=== PATIENT | male | born 1940 | race Caucasian/White ===

== ENCOUNTER 2019-01-04 14:19 | Emergency (ER) | payer OTHER ==
[~2019-01-04] VITALS: Ht 185.4 cm; Wt 80.3 kg
--- OUTSIDE RECORDS SUMMARY | 2019-01-04 14:22 | XMS REPORT | Continuity of Care Document ---
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 Monoclonal gammopathies Resolved 11/25/2011 Problem 08/26/2018 [facility] [place] A-fib Resolved 05/26/2010 Problem 08/26/2018 [facility] [place] Hypertriglyceridemia Resolved 05/26/2009 Problem 08/26/2018 [facility] [place] NIDDM Resolved 05/26/2009 Problem 08/26/2018 [facility] [place] COPD (Confirmed) Resolved 05/26/2008 Problem 08/26/2018 [facility] [place] GOUT Resolved 05/26/2007 Problem 08/26/2018 [facility] [place] GERD (Confirmed) Resolved 05/26/1999 Problem 08/26/2018 [facility] [place] HTN (Confirmed) Resolved 05/26/1974 Problem 08/26/2018 [facility] [place] ASBESTOSIS Resolved Problem 08/26/2018 [facility] [place] Basal cell carcinoma of nose Resolved Problem 08/26/2018 [facility] [place] Cerebral vascular accident Resolved Problem 08/26/2018 [facility] [place] (Confirmed) Resolved Problem 08/26/2018 [facility] [place] Urinary Frequency Resolved Problem 08/26/2018 [facility] [place] MONOCLONAL GAMMOPATHY Active [facility] Medications Medication Details Route Status Patient Instructions Ordering Provider Order Date Source levalbuterol 1.25 mg/3 mL inhalation solution 1.25 mg=3 mL, NEB, TID, # 270 ea, 0 Refill(s) Active 10/30/2016 [facility] Ibuprofen 100 MG Oral Tablet 200 mg=2 tab, PO, Q6H, PRN Pain, # 80 tab, 0 Refill(s) Active 10/30/2016 [facility] tamsulosin 0.4 mg oral capsule 0.4 mg=1 cap, PO, Daily, # 30 cap, 0 Refill(s) Active 10/30/2016 [facility] Klor-Con 10 10 mEq, PO, BID, 0 Refill(s) Active 10/30/2016 [facility] Furosemide 40 MG Oral Tablet 40 mg=1 tab, PO, Daily, # 30 tab, 0 Refill(s) Active 10/30/2016 [facility] Mirtazapine 30 MG Oral Tablet [Remeron] 30 mg=1 tab, PO, Bedtime, # 30 tab, 0 Refill(s) Active 10/30/2016 [facility] Nexium PO, Daily, 0 Refill(s) Active 10/30/2016 [facility] Allergies, Adverse Reactions, Alerts No Known Medication Allergies Immunizations No Data Provided for This Section Results Order Name Results Value Reference Range Date Interpretation Comments Source HEMATOLOGY Retic Auto 1.3 0.5 - 1.5 10/30/2016 [facility] Segs-Bands # 3.5 1.5 - 8.1 10/30/2016 [facility] HEMATOLOGY Eosinophils 5.0 0.0 - 4.0 10/30/2016 [facility] HEMATOLOGY Eosinophils # 0.3 0.0 - 0.5 10/30/2016 [facility] HEMATOLOGY Monocytes # 0.6 0.0 - 0.8 10/30/2016 [facility] Lymphocytes # 2.0 1.0 - 5.5 10/30/2016 [facility] Monocytes 10.0 2.0 - 12.0 10/30/2016 [facility] Lymphocytes 25.0 20.0 - 40.0 10/30/2016 [facility] HEMATOLOGY Bands 1.0 0.0 - 11.0 10/30/2016 [facility] HEMATOLOGY Segs 53.0 45.0 - 75.0 10/30/2016 [facility] Basophils # 0.1 0.0 - 0.2 10/30/2016 [facility] Atypical Lymphs 5.0 <=0.0 % 10/30/2016 [facility] Basophils 1.0 0.0 - 1.0 10/30/2016 [facility] Plt Morph Normal (10/30/16 10:00 AM) 10/30/2016 [facility] RBC Morph Normal (10/30/16 10:00 AM) 10/30/2016 [facility] MCH 31.9 27.0 - 31.0 10/30/2016 [facility] MCHC 33.8 32.0 - 36.0 10/30/2016 [facility] Platelet 157 133 - 450 10/30/2016 [facility] Hct 38.4 42.0 - 54.0 10/30/2016 [facility] RDW 13.4 11.5 - 14.5 10/30/2016 [facility] MCV 94.4 80.0 - 94.0 10/30/2016 [facility] MPV 9.2 7.4 - 10.4 10/30/2016 [facility] WBC 6.5 3.7 - 10.4 10/30/2016 [facility] RBC 4.06 4.70 - 6.10 10/30/2016 [facility] Hgb 13.0 14.0 - 18.0 10/30/2016 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 TECHNIQUE: Continuous 1.[address] images were obtained through the chest following the intravenous administration of contrast with coronal, sagittal, axial MIP and candycane reformatted images created at the workstation. IV contrast dose: 100 mL Omnipaque 300 contrast Total exam DLP: 466.09 mGy-- cm No prior chest CT is available for comparison. FINDINGS: The aortic root measures 36 mm. The ascending aorta is dilated measuring up to 41 mm. The aortic arch is 27 mm. The upper aspect of the descending thoracic aorta 27 mm, the mid descending thoracic aorta 27 mm and distally 26 mm. At the level of the diaphragmatic hiatus, the aorta measures 23 mm. Incompletely included on this study is tortuosity and ectasia of the infrarenal abdominal aorta measuring 30 mm on axial image 294. There is aortic atherosclerosis with calcifications. Aortic root/valve calcifications. No aortic dissection. Cardiothoracic ratio measures 15.3/29.5 cm. Calcifications identified in the left anterior descending and right coronary arteries. The pulmonary trunk is normal in caliber. Tiny pericardial effusion. There are no pleural effusions. Limited imaging through the upper abdomen shows mesenteric edema and perinephric stranding. Adrenal glands are unremarkable. There may be a small gastric diverticulum posteriorly. Calcified mediastinal and left hilar lymph nodes are the result of granulomatous disease. Centrilobular and paraseptal emphysema with an upper lobe predilection. Dependent atelectasis in the bilateral lower lobes and subsegmental atelectasis in the lingula. There is dextroscoliosis of the thoracic spine with degenerative changes including disc space narrowing, subchondral sclerosis and osteophytes. C-spine anterior fusion hardware. Old healed right-sided rib fractures. IMPRESSION: 1. 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 Aortic atherosclerosis and aortic valve calcifications. 2. Incompletely included on this study is tortuosity and ectasia of the infrarenal abdominal aorta. The abdominal aorta can be better evaluated with abdominal CTA as clinically indicated. 3. Borderline cardiomegaly. Coronary artery calcifications. Tiny pericardial effusion. 4. Centrilobular and paraseptal emphysema with an upper lobe predilection. 5. Bilateral lower lobe and lingular subsegmental atelectasis. 08/24/2018 [facility] Bone Marrow Biopsy or Trocar (VR) Patient Name: PARAMJIT CRESPO : 1940; Age: 76 years y/o Male MR: [id number] Study: Bone Marrow Biopsy or Trocar (VR) 10/30/2016 8:58 AM CDT Ordering Physician: Maddison Tim MD Clinical Indication: - monoclonal gammophaty; Comparison: None Timeout performed prior procedure Total fluoroscopy time 0.1 minutes. Radiation dose 9 mGy. Fluoroscopic guidance for bone marrow biopsy. Hard copy fluoroscopic image recorded. 11-gauge needle was advanced into the left posterior iliac crest marrow space. 6 mL of marrow were aspirated. 11-gauge core bone biopsy performed at the left iliac bone. Intravenous conscious sedation. Patient received 2 mg Versed and 50 mcg fentanyl. Total physician-patient rugo-mg-jzex sedation monitoring 10 minutes. Procedure well-tolerated 4. SL: [id number] 10/30/2016 [facility] Consultation Notes No Data Provided for This Section Discharge Summaries No Data Provided for This Section History and Physicals No Data Provided for This Section Vital Signs Vital Sign Value Date Comments Source Height 187.96 cm 10/30/2016 [facility] BMI Calculated 28.31 10/30/2016 [facility] Weight 100 10/30/2016 [facility] Encounters Location Location Details Encounter Type Encounter Number Reason For Visit Attending Provider ADM Date DC Date Status Source [facility] Outpatient [id number] Maddison Jacoboneel 10/30/2016 10/31/2016 [facility] [place] [facility] [id number] Scottkate Buckley 08/24/2018 08/25/2018 [facility] Procedures Procedure Code Date Perfomer Comments Source Cataract surgery [id number] 05/26/2008 [facility] Fusion of cervicothoracic region of spine by posterior approach [id number] 05/26/2008 [facility] Cataract surgery [id number] 05/26/2008 [facility] Fusion of cervicothoracic region of spine by posterior approach [id number] 05/26/2008 [facility] Pneumothorax relief<sup>1</sup> [id number] 05/19/2007 chest tube placement r/t fall and fracture of two ribs [facility] Pneumothorax relief<sup>1</sup> [id number] 05/19/2007 chest tube placement r/t fall and fracture of two ribs [facility] Knee arthrogram<sup>2</sup> [id number] 05/26/1961 left knee meniscus removed [facility] Knee arthrogram<sup>2</sup> [id number] 05/26/1961 left knee meniscus removed [facility] Appendectomy [id number] 05/26/1949 [facility] Hernia repair<sup>3</sup> [id number] 05/26/1949 umbillical [facility] Tonsillectomy [id number] 05/26/1949 [facility] Appendectomy [id number] 05/26/1949 [facility] Hernia repair<sup>3</sup> [id number] 05/26/1949 umbillical [facility] Tonsillectomy [id number] 05/26/1949 [facility] Assessment and Plan No Data Provided for This Section Plan of Care No Data Provided for This Section Social History Social History Date Source Social History TypeResponse Smoking Status Former smoker; Type: Cigarettes; Exposure to Tobacco Smoke None; Cigarette Smoking Last 365 Days No; Reg Smoking Cessation Counseling No; Started [age] age: 14.0; Stopped at age: 62; entered on: 10/30/16 10/30/2016 [facility] Social History TypeResponse Smoking Status Former smoker; Type: Cigarettes; Started at age: 14.0; Stopped at age: 62; Exposure to Tobacco Smoke None; Cigarette Smoking Last 365 Days No; Reg Smoking Cessation Counseling No 10/30/2016 [facility] Family History No Data Provided for This Section Advance Directives No Data Provided for This Section Functional Status No Data Provided for This Section
--- OUTSIDE RECORDS SUMMARY | 2019-01-04 14:22 | XMS REPORT | Summary of Care ---
Author Author Kristy Olmstead Organization Unknown Address [facility] Phone Unavailable Care Team Providers Care Electronics Inspector Name Role Phone DAJUAN OLIVO M.D. 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, D47.2) Status: Active BPH (benign prostatic hyperplasia) (600.00, N40.0) Status: Active Spinal stenosis of lumbar region at multiple levels (724.02, M48.061) Status: Active Diabetes mellitus type 2, controlled (250.00, E11.9) Status: Active 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 Quantity: 90 DAJUAN OLIVO M.D. Active Fenofibrate Micronized 134 MG Oral Capsule TAKE 1 CAPSULE DAILY * Quantity: 90 Refills: 1 DAJUAN OLIVO M.D. Active Metoprolol Tartrate 50 MG Oral Tablet TAKE 1 TABLET EVERY 12 HOURS DAILY. * Quantity: 180 Refills: 1 DAJUAN OLIVO M.D. Active Warfarin Sodium 5 MG Oral Tablet TAKE 1/2 TABLET FRIDAY-FRIDAY, TAKE 1 TABLET ON FRIDAY * Quantity: 30 Refills: Juan C GEOVANI AndrewsDAJUAN Active Tamsulosin HCl - 0.4 MG Oral Capsule TAKE 1 CAPSULE DAILY * Quantity: 90 Refills: Juan C ALEXANDER OLIVO M.D.OLD Active Xopenex HFA 45 MCG/ACT Inhalation Aerosol INHALE 1 TO 2 PUFFS EVERY 4 TO 6 HOURS NEEDED. * Quantity: 1 Refills: 3 DAJUAN OLIVO M.D. Active 15 GM Inhaler Furosemide 40 MG Oral Tablet TAKE 1 TABLET DAILY * Quantity: 30 Refills: 6 DAJUAN OLIVO M.D. Active Klor-Con 10 10 MEQ Oral Tablet Extended Release TAKE 1 TABLET DAILY. * Quantity: 30 Refills: 6 DAJUAN OLIVO M.D. Active NexIUM 24HR TBEC TAKE 1 CAPSULE DAILY * Refills: 0 Active Vitamin C 500 MG Oral Capsule TAKE 1 CAPSULE DAILY * Refills: 0 Active Vitamin B-12 1000 MCG Oral Tablet TAKE 2 TABLETS DAILY * Refills: 0 Active Levalbuterol HCl - 1.25 MG/3ML Inhalation Nebulization Solution USE 1 VIAL IN NEBULIZER EVERY 6 HOURS. * Quantity: 360 Refills: Stephane GEOVANI AndrewsDAJUAN * Start : 20-Aug-2017 Active Allergies and Adverse Reactions Name Dates Details Vicodin TABS (Adverse Event) Reaction: Vomiting Status: Active Past Medical History Name Dates Details History of Elevated glucose (790.29, R73.09) Status: Resolved History of gout (V12.29, Z87.39) Status: Resolved History of hyperlipidemia (V12.29, Z86.39) Status: Resolved History of hypertension (V12.59, Z86.79) Status: Resolved History of stroke (V12.54, Z86.73) Status: Resolved Procedures Procedure Dates Details History of knee surgery Completed History of cervical vertebral fusion Completed Comments: Completed: 2007 History of lumbar laminectomy Completed 11-Jun-2017 Immunization Name Dates Details Influenza, seasonal, injectable on: Mar-2017 Family History Name Dates Details Family history of Alzheimer's disease (V17.2, Z82.0) Status: Active Name Dates Details Family history of malignant neoplasm (V16.9, Z80.9) Status: Active Social History Name Dates Details - Status: Name Dates Details Former smoker Vital Signs Date Test Result Details [id number] Physical Findings 2013 Status: Comments: Colonoscopy Physical Findings 0 Status: Comments: PHQ-9 Adult Depression Screening :32 BP Systolic 115 mm[Hg] Status: Comments: Location: E; Position: Sitting BP Diastolic 74 mm[Hg] Status: Comments: Location: E; Position: Sitting Height 74 in Status: Weight 197.1875 lb Status: Body Mass Index Calculated 25.32 kg/m2 Status: Body Surface Area Calculated 2.16 m2 Status: Temperature 98.3 f Status: Comments: Method: Temporal Heart Rate 80 /min Status: Comments: Location: L Brachial Artery; Respiration Rate 16 /min Status: Results Date Description Value Details :29 [QLH] LIPID PANEL CHOLESTEROL, TOTAL 139 mg/dl (Normal) Range: <200 HDL CHOLESTEROL 47 mg/dl (Normal) Range: >40 TRIGLYCERIDES 78 mg/dl (Normal) Range: <150 LDL-CHOLESTEROL 76 {MG/DL__CAL} (Normal) Comments: Reference range: <100 Desirable range <100 mg/dL for patients with CHD ordiabetes and <70 mg/dL for diabetic patients withknown heart disease. LDL-C is now calculated using the Edita cabrera calculation, which is a validated novel method providing better accuracy than the Friedewald equation in the estimation of LDL-C. Eloy SS et al. URMILA. 2013;310(19): 6723-3399 (http://education.ScaleXtreme.DueProps/faq/FSM749) CHOL/HDLC RATIO 3.0 {CALC} (Normal) Range: <5.0 NON HDL CHOLESTEROL 92 {MG/DL__CAL} (Normal) Range: <130 Comments: For patients with diabetes plus 1 major ASCVD risk factor, treating to a non-HDL-C goal of <100 mg/dL (LDL-C of <70 mg/dL) is considered a therapeutic option. :29 [QLH] URIC ACID URIC ACID 3.9 mg/dl (Below low threshold) Range: 4.0-8.0 Comments: Therapeutic target for gout patients: <6.0 mg/dL :29 [QLH] CMP W/EGFR GLUCOSE 92 mg/dl (Normal) Range: 65-99 Comments: Fasting reference interval UREA NITROGEN (BUN) 16 mg/dl (Normal) Range: 7-25 CREATININE 1.36 mg/dl (Above high threshold) Range: 0.70-1.18 Comments: For patients >49 years of age, the reference limitfor Creatinine is approximately 13% higher for peopleidentified as -[place]. eGFR NON- 51 {ML/MIN/1.7} (Below low threshold) Range: > OR=60 eGFR 59 {ML/MIN/1.7} (Below low threshold) Range: > OR=60 BUN/CREATININE RATIO 12 {CALC} (Normal) Range: 6-22 SODIUM 142 mmol/L (Normal) Range: 135-146 POTASSIUM 4.2 mmol/L (Normal) Range: 3.5-5.3 CHLORIDE 105 mmol/L (Normal) Range: 98-110 CARBON DIOXIDE 30 mmol/L (Normal) Range: 20-31 CALCIUM 9.4 mg/dl (Normal) Range: 8.6-10.3 PROTEIN, TOTAL 6.4 g/dl (Normal) Range: 6.1-8.1 ALBUMIN 4.0 g/dl (Normal) Range: 3.6-5.1 GLOBULIN 2.4 {G/DL__CALC} (Normal) Range: 1.9-3.7 ALBUMIN/GLOBULIN RATIO 1.7 {CALC} (Normal) Range: 1.0-2.5 BILIRUBIN, TOTAL 0.6 mg/dl (Normal) Range: 0.2-1.2 ALKALINE PHSPHATASE 31 u/l (Below low threshold) Range: 40-115 AST 15 u/l (Normal) Range: 10-35 ALT 10 u/l (Normal) Range: 9-46 [id number] [[facility]] CBC (INCLUDES DIFF/PLT) WHITE BLOOD CELL COUNT 7.0 {Thousand/u} (Normal) Range: 3.8-10.8 RED BLOOD CELL COUNT 3.77 {Million/uL} (Below low threshold) Range: 4.20-5.80 HEMOGLOBIN 11.9 g/dl (Below low threshold) Range: 13.2-17.1 HEMATOCRIT 36.5 % (Below low threshold) Range: 38.5-50.0 MCV 96.8 fL (Normal) Range: 80.0-100.0 MCH 31.6 pg (Normal) Range: 27.0-33.0 MCHC 32.6 g/dl (Normal) Range: 32.0-36.0 RDW 12.8 % (Normal) Range: 11.0-15.0 PLATELET COUNT 193 {Thousand/u} (Normal) Range: 140-400 MPV 11.0 fL (Normal) Range: 7.5-12.5 ABSOLUTE NEUTROPHILS 4522 {cells/uL} (Normal) Range: 7258-4829 ABSOLUTE LYMPHOCYTES 1848 {cells/uL} (Normal) Range: 850-3900 ABSOLUTE MONOCYTES 469 {cells/uL} (Normal) Range: 200-950 ABSOLUTE EOSINOPHILS 133 {cells/uL} (Normal) Range: 15-500 ABSOLUTE BASOPHILS 28 {cells/uL} (Normal) Range: 0-200 NEUTROPHILS 64.6 % (Normal) LYMPHOCYTES 26.4 % (Normal) MONOCYTES 6.7 % (Normal) EOSINOPHILS 1.9 % (Normal) BASOPHILS 0.4 % (Normal) :29 [[facility]] TSH, 3RD GENERATION TSH 0.86 {MIU/L} (Normal) Range: 0.40-4.50 :29 [[facility]] HEMOGLOBIN A1c Comments: REPORT COMMENT:FASTING:YES HEMOGLOBIN A1c 5.1 {%_of_total} (Normal) Range: <5.7 Comments: For the purpose of screening for the presence ofdiabetes: <5.7% Consistent with the absence of diabetes5.7-6.4% Consistent with increased risk for diabetes (prediabetes)> or=6.5% Consistent with diabetes This assay result is consistent with a decreased riskof diabetes. Currently, no consensus exists regarding use ofhemoglobin A1c for diagnosis of diabetes in children. According to [place] Diabetes Association (ADA)guidelines, hemoglobin A1c <7.0% represents optimalcontrol in non- diabetic patients. Differentmetrics may apply to specific patient populations. Standards of Medical Care in Diabetes(ADA). [id number] [O] PT/INR (in office) International Normalization Ratio 2.8 PT 34 . 18Q Plan of Care Name Dates Details Planned Observations Planned Goals not documented Planned Encounters Appointment; GERHARD MENDOZA M.D. On: 16-Sep-2017 13:20 Appointment; DAJUAN OLIVO M.D. On: 30-Sep-2017 11:30 Instructions Name Dates Details Instructions not documented Encounters Appointment; DAJUAN OLIVO M.D. Encounter Diagnosis: Problem not documented On: 27-May-2017 10:00 Appointment; DAJUAN OLIVO M.D. Encounter Diagnosis: Problem not documented On: 26-Jun-2017 10:30 Appointment; DAJUAN OLIVO M.D. Encounter Diagnosis: Problem not documented On: 24-Jul-2017 14:00 Appointment; DAJUAN OLIVO M.D. Encounter Diagnosis: Problem not documented On: 26-Aug-2017 11:30
--- OUTSIDE RECORDS SUMMARY | 2019-01-04 14:22 | XMS REPORT | Summary of Care ---
Author Author [facility] Outpatient Imaging [facility] Outpatient Imaging [facility] Address Unknown Phone Unavailable Encounter GENNY Lee(RONALDO) [id number] Date(s): 08/24/18 - 08/24/18 [facility] Outpatient Imaging [facility] [address], [address] [place] [phone] Discharge Disposition: Home or Self Care Attending Physician: Scott Buckley MD Referring Physician: Scott Buckley MD Vital Signs No data available for this section Problem List Condition Effective Dates Status Health Status Informant A-fib(Confirmed) 05/26/10 Resolved ASBESTOSIS(Confirmed Resolved ) Basal cell carcinoma Resolved of nose(Confirmed) COPD (chronic 05/26/08 Resolved obstructive pulmonary disease)(Confirmed) Cerebral vascular Resolved accident(Confirmed) GERD 05/26/99 Resolved (gastroesophageal reflux disease)(Confirmed) GOUT(Confirmed) 05/26/07 Resolved [place] (hard of Resolved hearing)(Confirmed) HTN 05/26/74 Resolved (hypertension)(Confi rmed) Hypertriglyceridemia 05/26/09 Resolved (Confirmed) 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) NIDDM(Confirmed) 05/26/09 Resolved Urinary Resolved Frequency(Confirmed) Allergies, Adverse Reactions, Alerts Substance Reaction Severity Status NKDA Active Medications No data available for this section Results No data available for this section Immunizations No data available for this section Procedures Procedure Date Related Diagnosis Body Site Status Cataract surgery 05/26/08 Completed Fusion of cervicothoracic region of spine by 05/26/08 Completed posterior approach Pneumothorax relief1 05/19/07 Completed Knee arthrogram2 05/26/61 Completed Appendectomy 05/26/49 Completed Hernia repair3 05/26/49 Completed Tonsillectomy 05/26/49 Completed 1chest tube placement r/t fall and fracture of two ribs 2left knee meniscus removed 3umbillical Social History Social History Type Response Smoking Status Former smoker; Type: Cigarettes; Exposure to Tobacco Smoke None; Cigarette Smoking Last 365 Days No; Reg Smoking Cessation Counseling No; Started at age: 14.0; Stopped at age: 62; entered on: 10/30/16 Assessment and Plan No data available for this section
--- OUTSIDE RECORDS SUMMARY | 2019-01-04 14:22 | XMS REPORT | Summary of Care ---
Author Author [facility] Organization [facility] Address Unknown Phone Unavailable Encounter GENNY Lee(RONALDO) [id number] Date(s): 10/30/16 - 10/30/16 [facility] [id number] [place] [address]- Discharge Disposition: Home or Self Care Attending Physician: Maddison Tim MD Referring Physician: Maddison Tim MD Vital Signs Most recent to 1 oldest [Reference Range]: Height 187.96 cm (10/30/16 8:53 AM) Weight 100 kg (10/30/16 8:53 AM) Body Mass Index 28.31 m2 (10/30/16 8:53 AM) Problem List Condition Effective Dates Status Health Status Informant A-fib(Confirmed) 05/26/10 Resolved ASBESTOSIS(Confirmed Resolved ) Basal cell carcinoma Resolved of nose(Confirmed) COPD (chronic 05/26/08 Resolved obstructive pulmonary disease)(Confirmed) Cerebral vascular Resolved accident(Confirmed) GERD 05/26/99 Resolved (gastroesophageal reflux disease)(Confirmed) GOUT(Confirmed) 05/26/07 Resolved [place] (hard of Resolved hearing)(Confirmed) HTN 05/26/74 Resolved (hypertension)(Confi rmed) Hypertriglyceridemia 05/26/09 Resolved (Confirmed) 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) NIDDM(Confirmed) 05/26/09 Resolved Urinary Resolved Frequency(Confirmed) Allergies, Adverse Reactions, Alerts Substance Reaction Severity Status NKDA Active Medications furosemide 40 mg oral tablet 40 mg=1 tab, PO, Daily, # 30 tab, 0 Refill(s) Start Date: 10/30/16 Status: Ordered ibuprofen 100 mg oral tablet 200 mg=2 tab, PO, Q6H, PRN Pain, # 80 tab, 0 Refill(s) Start Date: 10/30/16 Stop Date: 11/09/16 Status: Ordered Klor-Con 10 10 mEq, PO, BID, 0 Refill(s) Start Date: 10/30/16 Status: Ordered levalbuterol 1.25 mg/3 mL inhalation solution 1.25 mg=3 mL, NEB, TID, # 270 ea, 0 Refill(s) Start Date: 10/30/16 Status: Ordered NexIUM PO, Daily, 0 Refill(s) Start Date: 10/30/16 Status: Ordered Remeron 30 mg oral tablet 30 mg=1 tab, PO, Bedtime, # 30 tab, 0 Refill(s) Start Date: 10/30/16 Status: Ordered tamsulosin 0.4 mg oral capsule 0.4 mg=1 cap, PO, Daily, # 30 cap, 0 Refill(s) Start Date: 10/30/16 Status: Ordered Results HEMATOLOGY Most recent to 1 oldest [Reference Range]: WBC [3.7-10.4 K/CMM] 6.5 K/CMM (10/30/16 10:00 AM) RBC [4.70-6.10 4.06 M/CMM M/CMM] *LOW* (10/30/16 10:00 AM) Hgb [14.0-18.0 g/dL] 13.0 g/dL *LOW* (10/30/16 10:00 AM) Hct [42.0-54.0 %] 38.4 % *LOW* (10/30/16 10:00 AM) MCV [80.0-94.0 fL] 94.4 fL *HI* (10/30/16 10:00 AM) MCH [27.0-31.0 pg] 31.9 pg *HI* (10/30/16 10:00 AM) MCHC [32.0-36.0 33.8 g/dL g/dL] (10/30/16 10:00 AM) RDW [11.5-14.5 %] 13.4 % (10/30/16 10:00 AM) Platelet [133-450 157 K/CMM K/CMM] (10/30/16 10:00 AM) MPV [7.4-10.4 fL] 9.2 fL (10/30/16 10:00 AM) Segs [45.0-75.0 %] 53.0 % (10/30/16 10:00 AM) Bands [0.0-11.0 %] 1.0 % (10/30/16 10:00 AM) Lymphocytes 25.0 % [20.0-40.0 %] (10/30/16 10:00 AM) Atypical Lymphs 5.0 % [<=0.0 %] *HI* (10/30/16 10:00 AM) Monocytes [2.0-12.0 10.0 % %] (10/30/16 10:00 AM) Eosinophils [0.0-4.0 5.0 % %] *HI* (10/30/16 10:00 AM) Basophils [0.0-1.0 1.0 % %] (10/30/16 10:00 AM) Segs-Bands # 3.5 K/CMM [1.5-8.1 K/CMM] (10/30/16 10:00 AM) Lymphocytes # 2.0 K/CMM [1.0-5.5 K/CMM] (10/30/16 10:00 AM) Monocytes # [0.0-0.8 0.6 K/CMM K/CMM] (10/30/16 10:00 AM) Eosinophils # 0.3 K/CMM [0.0-0.5 K/CMM] (10/30/16 10:00 AM) Basophils # [0.0-0.2 0.1 K/CMM K/CMM] (10/30/16 10:00 AM) RBC Morph Normal (10/30/16 10:00 AM) Plt Morph Normal (10/30/16 10:00 AM) Retic Auto [0.5-1.5 1.3 % %] (10/30/16 10:00 AM) Immunizations No data available for this section Procedures Procedure Date Related Diagnosis Body Site Cataract surgery 05/26/08 Fusion of cervicothoracic region of spine by 05/26/08 posterior approach Pneumothorax relief1 05/19/07 Knee arthrogram2 05/26/61 Appendectomy 05/26/49 Hernia repair3 05/26/49 Tonsillectomy 05/26/49 1chest tube placement r/t fall and fracture of two ribs 2left knee meniscus removed 3umbillical Social History Social History Type Response Smoking Status Former smoker; Type: Cigarettes; Started at age: 14.0; Stopped at age: 62; Exposure to Tobacco Smoke None; Cigarette Smoking Last 365 Days No; Reg Smoking Cessation Counseling No Assessment and Plan No data available for this section
[2019-01-04 15:32] LABS: BILIRUBIN,URINE NEGATIVE (NEGATIVE); CLARITY,URINE CLEAR (CLEAR); COLOR,URINE YELLOW (YELLOW); KETONES,URINE NEGATIVE (NEGATIVE); LEUKOCYTE ESTERASE ,URINE NEGATIVE (NEGATIVE); NITRITE,URINE NEGATIVE (NEGATIVE); PROTEIN,URINE DIPSTICK NEGATIVE (NEGATIVE); URINE UROBILINOGEN 0.2 mg/dL (0.2 - 1)
[2019-01-04 16:03] LABS: BACTERIA,URINE MODERATE /HPF
--- NOTE | 2019-01-04 16:45 | Diagnostic Imaging Report ---
Exam: Testicular ultrasound. Clinical History: Right testicular and groin pain. Findings: Grayscale, Color Doppler, and waveform analysis evaluation of the testicles. Right testicle: Measures 4.3 x 1.9 x 3.2 cm. Homogeneous echotexture. No focal mass. Normal blood flow. The right epididymis measures 1.0 x 0.5 x 0.7 cm. Trace right hydrocele. Left testicle: Measures 3.7 x 2.1 3.1 cm. Homogeneous echotexture. No focal mass. Normal blood flow. The left epididymis measures 0.8 x 0.6 x 0.5 cm. No hydrocele. Left varicocele. Bowel movement is noted within a right inguinal hernia. Impression: Normal testes with homogeneous echotexture and symmetric blood flow. Right inguinal hernia containing loop of bowel. Small right hydrocele. Left varicocele. Signed by: Paulette Meek MD on 01/04/2019 4:42 PM
--- NOTE | 2019-01-04 16:57 | Diagnostic Imaging Report ---
EXAM: CT Abdomen and Pelvis WITHOUT intravenous contrast INDICATION: Abdominal pain COMPARISON: Testicular ultrasound of the same day. TECHNIQUE: Abdomen and pelvis were scanned utilizing a multidetector helical scanner from the lung base to the pubic symphysis without administration of IV contrast. Coronal and sagittal reformations were obtained. IV CONTRAST: None ORAL CONTRAST: None. COMPLICATIONS: None RADIATION DOSE: Total DLP: 303.6 mGy*cm Dose modulation, iterative reconstruction, and/or weight based adjustment of the mA/kV was utilized to reduce the radiation dose to as low as reasonably achievable. FINDINGS: LOWER THORAX: Mild left basilar subsegmental atelectasis. No focal consolidation. Atherosclerotic coronary artery calcifications. Left hemidiaphragmatic eventration. HEPATOBILIARY: Scattered subcentimeter calcified granulomas. No other focal liver lesion. Normal gallbladder. SPLEEN: Scattered calcified granulomas in the nonenlarged spleen. PANCREAS: No focal masses or ductal dilatation. ADRENALS: No adrenal nodules. KIDNEYS/URETERS: No renal calculi or hydronephrosis. Left lower pole exophytic 2.4 cm structure is indeterminate on noncontrast images but likely represents a cyst. PELVIC ORGANS/BLADDER: Prostatomegaly to 5.5 cm with coarse internal calcifications. The bladder is distended and appears otherwise unremarkable. PERITONEUM / RETROPERITONEUM: No free air or fluid. LYMPH NODES: No lymphadenopathy. VESSELS: Atherosclerotic calcifications of the abdominal aorta and major branches. Infrarenal abdominal aortic aneurysm measuring up to 3.2 cm. 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 GI TRACT: Colonic diverticulosis. No CT evidence of diverticulitis. No abnormal bowel wall thickening. No bowel obstruction. BONES AND SOFT TISSUES: The right inguinal hernia containing bowel seen on ultrasound of the same day is not present on the CT and is likely a transient phenomenon. No acute osseous injury. Severe lower lumbar spine degenerative changes. Grade 1 retrolisthesis at L2-3. Levoconvex curvature of the lumbar spine. IMPRESSION: No renal calculi or hydronephrosis. Prostatomegaly. Diffuse atherosclerotic arterial calcifications including of the coronary arteries. 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 The right inguinal hernia seen on testicular ultrasound of the same day is not present on this CT and is likely a transient phenomenon. Signed by: Paulette Meek MD on 01/04/2019 4:54 PM
[2019-01-04] MEDS ORDERED: CEFTRIAXONE SOD 1 GM VIAL IM ONE (17:30)
[2019-01-04 19:43] VITALS: BP 148/86
== END 2019-01-04 20:03 | disposition home or self-care (01) ==
LOC: ER 14:19
DX: N50.811 Right testicular pain (principal); K40.90 Unilateral inguinal hernia, without obstruction or gangrene, not specified as recurrent; N43.3 Hydrocele, unspecified
CPT/HCPCS: 36556; 74176; 76870; 81001; 93005; 93976; 99284; J0696

== ENCOUNTER 2022-11-02 15:43 | Inpatient (IN) | payer MEDICARE, OTHER ==
[~2022-11-02] VITALS: Ht 188 cm; Wt 62.8 kg
[2022-11-02] MEDS ORDERED: SODIUM CHLORIDE 0.9% 1000ML 1,000 ML IV ONE ×2 (16:45→21:15)
[2022-11-02] MEDS ORDERED: DICYCLOMINE HCL 20 MG/2 ML VIAL IM ONE (16:45)
[2022-11-02] MEDS ORDERED: ONDANSETRON HCL INJ 2MG/ML 2ML 2 MG/ML VIAL IV STA ×2 (17:14→23:59)
[2022-11-02] MEDS ORDERED: Morphine 4mg INJECTION 4 MG/ML INJ IV ONE ×2 (17:15→21:00)
[2022-11-02 17:37] LABS: CLARITY,URINE CLEAR (CLEAR); COLOR,URINE YELLOW (YELLOW)
[2022-11-02 17:38] LABS: KETONES,URINE NEGATIVE (NEGATIVE); LEUKOCYTE ESTERASE ,URINE TRACE (NEGATIVE); NITRITE,URINE NEGATIVE (NEGATIVE); PROTEIN,URINE DIPSTICK NEGATIVE (NEGATIVE); URINE UROBILINOGEN 0.2 mg/dL (0.2 - 1)
[2022-11-02 17:45] LABS: BASOPHILS % 0.5 % (0.0-1.0); EOSINOPHILS % 0.4 % (0.0-6.0); HEMATOCRIT 35.6 % (38.2-49.6); HEMOGLOBIN 11.6 g/dL (14.0-18.0); LYMPHOCYTES % 12.3 % (18.0-39.1); MEAN CORPUSCULAR HEMOGLOBIN 33.4 pg (28-32); MEAN CORPUSCULAR HGB CONC 32.6 g/dL (31-35); MEAN CORPUSCULAR VOLUME 102.6 fL (81-99); MONOCYTES # (AUTO) 0.8 (0.2-0.8); MONOCYTES % 9.8 % (4.4-11.3); NEUTROPHILS # (AUTO) 6.4 (2.1-6.9); NEUTROPHILS % 76.6 % (38.7-80.0); PLATELET COUNT 297 x10e3/uL (140-360); RED BLOOD COUNT 3.47 x10e6/uL (4.3-5.7); RED CELL DISTRIBUTION WIDTH 13.3 % (11.7-14.4)
[2022-11-02 17:59] LABS: BACTERIA,URINE MODERATE /HPF; EPITHELIAL CELLS,URINE FEW /LPF; TRANSITIONAL EPI CELLS,URINE FEW
[2022-11-02 18:02] LABS: INR 1.2; PROTHROMBIN TIME 15.7 seconds (11.9-14.5)
[2022-11-02 18:03] LABS: PARTIAL THROMBOPLASTIN TIME 36.6 seconds (23.8-35.5)
[2022-11-02 18:11] LABS: ALBUMIN 3.4 g/dL (3.5-5.0); ALBUMIN/GLOBULIN RATIO 0.9 (0.8-2.0); ANION GAP 17.2 mmol/L (8-16); CALCIUM 10.3 mg/dL (8.4-10.2); CREATININE, SERUM 1.12 mg/dL (0.72-1.25); POTASSIUM 4.2 mmol/L (3.5-5.1)
[2022-11-02] MEDS ORDERED: IOPAMIDOL 370 MG/ML 100 ML INFUS..BTL INJ ONE (19:25)
[2022-11-02] MEDS ORDERED: Morphine 4mg INJECTION 4 MG/ML INJ ONE (20:59)
[2022-11-02] MEDS ORDERED: ONDANSETRON HCL INJ 2MG/ML 2ML 2 MG/ML VIAL ONE (20:59)
[2022-11-02] MEDS ORDERED: ONDANSETRON HCL INJ 2MG/ML 2ML 2 MG/ML VIAL IV PRN (21:15)
[2022-11-02] MEDS ORDERED: DEXTROSE 50% SYRINGE 50 ML IV PRN (21:15)
[2022-11-02 23:50] VITALS: PULSE 86; RESP 18; O2SAT 99
[2022-11-03] VITALS (12 sets, daily range): BP systolic 110–123; BP diastolic 65–97; PULSE 65–101; RESP 18–20; TEMP 97.4–99; O2SAT 90–99
[2022-11-03] MEDS ORDERED: Morphine 4mg INJECTION 4 MG/ML INJ IV ONE
[2022-11-03] MEDS ORDERED: ALLOPURINOL300 MG PO (01:37)
[2022-11-03] MEDS ORDERED: ULTRAM 50MG50 MG PO (01:37)
[2022-11-03] MEDS ORDERED: METOPROLOL TART50 MG PO (01:37)
[2022-11-03] MEDS ORDERED: ONDANSETRON ODT4 MG PO (01:37)
[2022-11-03] MEDS ORDERED: LEVALBUTER1.25 MG/3 INH (01:37)
[2022-11-03] MEDS ORDERED: TYLENOL325 MG PO (01:37)
[2022-11-03] MEDS ORDERED: APLISOL5 TUB UNIT (01:37)
[2022-11-03] MEDS ORDERED: COMBIVENT RESPIM4 GM IH (01:37)
[2022-11-03] MEDS ORDERED: FUROSEMIDE40 MG PO (01:37)
[2022-11-03] MEDS ORDERED: ASCORBIC ACID500 M2 PO (01:37)
[2022-11-03] MEDS ORDERED: ATROVENT HFA12.9 GM INH (01:37)
[2022-11-03] MEDS ORDERED: ELIQUIS2.5 MG PO (01:37)
[2022-11-03] MEDS ORDERED: LEVALBUTEROL TA15 GM (01:37)
[2022-11-03] MEDS ORDERED: NEXIUM20 MG PO (01:37)
[2022-11-03] MEDS ORDERED: VITAMIN B-121000 MCG PO (01:37)
[2022-11-03] MEDS ORDERED: TRICOR48 MG PO (01:37)
[2022-11-03] MEDS ORDERED: FLOMAX0.4 MG PO (01:37)
[2022-11-03] MEDS ORDERED: SILODOSIN8 MG PO (01:37)
[2022-11-03] MEDS ORDERED: CELECOXIB100 MG PO (01:37)
[2022-11-03] MEDS: Morphine 2mg Syringe 2 MG/ML SYR IV PRN ×4 (05:28→21:11)
[2022-11-03] MEDS: INSULIN REGULAR, HUMAN 100 UNIT/1 ML SQ SCH ×4 (07:30→19:26)
[2022-11-03] MEDS ORDERED: ACETAMINOPHEN 325 MG TAB PO PRN (10:00)
[2022-11-03] MEDS ORDERED: CELECOXIB 100 MG CAP PO PRN (10:00)
[2022-11-03] MEDS: POLYETHYLENE GLYCOL 3350 17 GM PACK PO SCH ×2 (12:13→16:59)
[2022-11-03] MEDS: MAGNESIUM HYDROXIDE 30 ML UDC PO SCH ×5 (12:13→23:40)
[2022-11-03] MEDS: APIXAB 2.5 MG TABLET PO SCH ×2 (12:14→17:06)
[2022-11-03] MEDS: SENNA-S TABLET PO SCH ×2 (12:14→16:59)
[2022-11-03] MEDS: ALLOPURINOL 300 MG TAB PO SCH (12:14)
[2022-11-03] MEDS: TAMSULOSIN HCL 0.4 MG CAP PO SCH ×2 (12:14→16:59)
[2022-11-03] MEDS: ASCORBIC ACID 500 MG TAB PO SCH (12:14)
[2022-11-03] MEDS: PANTOPRAZOLE SOD 40 MG TABEC PO SCH (12:14)
[2022-11-03] MEDS: METOPROLOL TARTRATE 50 MG TAB PO SCH ×2 (12:14→16:59)
[2022-11-03] MEDS: LEVALBUTEROL HCL SOLN NEBU 1.25 MG/3 ML NEB INH SCH ×2 (13:00→20:50)
[2022-11-03] MEDS: TRAMADOL HCL 50 MG TAB PO PRN ×2 (13:33→23:41)
[2022-11-03] MEDS ORDERED: FENOFIBRATE 48 MG TAB PO SCH (21:00)
[2022-11-03] MEDS: FENOFIBRATE 145 MG TAB PO SCH (21:11)
[2022-11-04] VITALS (10 sets, daily range): BP systolic 98–124; BP diastolic 59–84; PULSE 52–94; RESP 18–22; TEMP 97.2–97.9; O2SAT 89–100
[2022-11-04] MEDS: LEVALBUTEROL HCL SOLN NEBU 1.25 MG/3 ML NEB INH SCH ×4 (00:06→19:45)
[2022-11-04] MEDS: Morphine 2mg Syringe 2 MG/ML SYR IV PRN ×4 (04:32→17:22)
[2022-11-04 05:18] LABS: BASOPHILS # (AUTO) 0.1 (0.0-0.1); EOSINOPHILS # (AUTO) 0.2 (0.0-0.4); EOSINOPHILS % 2.4 % (0.0-6.0); HEMATOCRIT 32.6 % (38.2-49.6); HEMOGLOBIN 10.1 g/dL (14.0-18.0); LYMPHOCYTES # (AUTO) 1.2 (1.0-3.2); LYMPHOCYTES % 17.9 % (18.0-39.1); MEAN CORPUSCULAR HEMOGLOBIN 33.6 pg (28-32); MEAN CORPUSCULAR VOLUME 108.3 fL (81-99); MONOCYTES # (AUTO) 0.8 (0.2-0.8); MONOCYTES % 11.3 % (4.4-11.3); NEUTROPHILS # (AUTO) 4.5 (2.1-6.9); NEUTROPHILS % 67.1 % (38.7-80.0); PLATELET COUNT 247 x10e3/uL (140-360); RED BLOOD COUNT 3.01 x10e6/uL (4.3-5.7); RED CELL DISTRIBUTION WIDTH 13.2 % (11.7-14.4)
[2022-11-04 05:48] LABS: CALCIUM 9.2 mg/dL (8.4-10.2); CREATININE, SERUM 1.07 mg/dL (0.72-1.25)
[2022-11-04] MEDS: INSULIN REGULAR, HUMAN 100 UNIT/1 ML SQ SCH ×4 (07:30→21:00)
[2022-11-04] MEDS: ALLOPURINOL 300 MG TAB PO SCH (08:45)
[2022-11-04] MEDS: PANTOPRAZOLE SOD 40 MG TABEC PO SCH (08:45)
[2022-11-04] MEDS: TAMSULOSIN HCL 0.4 MG CAP PO SCH ×2 (08:45→17:22)
[2022-11-04] MEDS: ASCORBIC ACID 500 MG TAB PO SCH (08:45)
[2022-11-04] MEDS: APIXAB 2.5 MG TABLET PO SCH ×2 (08:45→17:22)
[2022-11-04] MEDS: SENNA-S TABLET PO SCH ×2 (08:46→17:00)
[2022-11-04] MEDS: CYANOCOBALAMIN 1,000 MCG TAB PO SCH (08:47)
[2022-11-04] MEDS: METOPROLOL TARTRATE 50 MG TAB PO SCH ×2 (08:47→17:27)
[2022-11-04] MEDS: POLYETHYLENE GLYCOL 3350 17 GM PACK PO SCH ×2 (09:00→17:00)
[2022-11-04] MEDS ORDERED: PEG (High)/E-LYTE SOLN 4,000 ML BTL PO ONE (09:30)
[2022-11-04] MEDS ORDERED: ONDANSETRON HCL 4 MG ORAL DISINTEGRATING TAB PO PRN (09:30)
[2022-11-04] MEDS: FENOFIBRATE 145 MG TAB PO SCH (21:29)
[2022-11-05] MEDS: Morphine 2mg Syringe 2 MG/ML SYR IV PRN ×2 (01:44→09:11)
[2022-11-05 01:50] VITALS: PULSE 78; RESP 18; O2SAT 96
[2022-11-05] MEDS: LEVALBUTEROL HCL SOLN NEBU 1.25 MG/3 ML NEB INH SCH ×3 (01:50→12:55)
[2022-11-05 06:44] VITALS: PULSE 85; RESP 20; O2SAT 97
[2022-11-05] MEDS: INSULIN REGULAR, HUMAN 100 UNIT/1 ML SQ SCH ×2 (07:30→11:30)
[2022-11-05 08:00] VITALS: BP 129/83; PULSE 74; RESP 20; TEMP 97.8; O2SAT 98
[2022-11-05 08:29] VITALS: BP 129/83; PULSE 74; RESP 20; TEMP 97.8; O2SAT 98
[2022-11-05] MEDS ORDERED: BALSAM PERU/CASTOR OIL 60 GM OINT...G. TP SCH (09:00)
[2022-11-05] MEDS: ASCORBIC ACID 500 MG TAB PO SCH (09:09)
[2022-11-05] MEDS: ALLOPURINOL 300 MG TAB PO SCH (09:09)
[2022-11-05] MEDS: SENNA-S TABLET PO SCH (09:09)
[2022-11-05] MEDS: PANTOPRAZOLE SOD 40 MG TABEC PO SCH (09:09)
[2022-11-05] MEDS: APIXAB 2.5 MG TABLET PO SCH (09:10)
[2022-11-05] MEDS: TAMSULOSIN HCL 0.4 MG CAP PO SCH (09:10)
[2022-11-05] MEDS: METOPROLOL TARTRATE 50 MG TAB PO SCH (09:10)
[2022-11-05] MEDS: POLYETHYLENE GLYCOL 3350 17 GM PACK PO SCH (09:10)
[2022-11-05] MEDS: CYANOCOBALAMIN 1,000 MCG TAB PO SCH (09:13)
[2022-11-05] MEDS ORDERED: SENNA-S 8.6-501 EACH PO (10:38)
[2022-11-05] MEDS ORDERED: MIRALAX17 GM PO (10:38)
[2022-11-05] MEDS ORDERED: LINZESS145 MCG PO (10:39)
[2022-11-05] MEDS ORDERED: tylenol #3 PO (10:40)
[2022-11-05 11:42] VITALS: BP 181/74; PULSE 84; RESP 22; TEMP 97.9; O2SAT 97
[2022-11-05 13:04] VITALS: PULSE 71; PULSE 76; RESP 20; O2SAT 96
== END 2022-11-05 13:15 | disposition home health service (06) | DRG 389 ==
LOC: ER 16:18 → ERHOLD 21:01 → MED/SURG3 11-03 00:17 → OBSVTOIN 11-04 09:25
PROVIDERS: ADMIT Internal Medicine; ATTEND Internal Medicine
DX: K56.41 Fecal impaction (principal); I48.20 Chronic atrial fibrillation, unspecified; M10.9 Gout, unspecified; I35.0 Nonrheumatic aortic (valve) stenosis; N40.1 Benign prostatic hyperplasia with lower urinary tract symptoms; R33.8 Other retention of urine; M48.00 Spinal stenosis, site unspecified; I10 Essential (primary) hypertension; J44.9 Chronic obstructive pulmonary disease, unspecified; E78.5 Hyperlipidemia, unspecified; I73.9 Peripheral vascular disease, unspecified; I71.40 Abdominal aortic aneurysm, without rupture, unspecified; F01.50 Vascular dementia, unspecified severity, without behavioral disturbance, psychotic disturbance, mood disturbance, and anxiety; R53.1 Weakness; N41.1 Chronic prostatitis; Z79.01 Long term (current) use of anticoagulants; Z87.891 Personal history of nicotine dependence; Z98.1 Arthrodesis status; Z86.73 Personal history of transient ischemic attack (TIA), and cerebral infarction without residual deficits; Z99.81 Dependence on supplemental oxygen; Z79.899 Other long term (current) drug therapy; Z74.01 Bed confinement status
CPT/HCPCS: 0223U; 36415; 71045; 74018; 74174; 80048; 80053; 81001; 82550; 82948; 83690; 84484; 85025; 85610; 85730; 87324; 87449; 93005; 94799; 99252; 99285; G0378; J0696; J2270; J2405; J7030; Q9967